=== PATIENT | female | born 1940 | race Caucasian/White ===

== ENCOUNTER → 2016-07-02 | Outpatient (CLI) | payer MEDICARE, BC ==
--- NOTE | 2016-07-02 14:46 | RADRPT ---
PROCEDURE: Right knee radiographs. CLINICAL INDICATION: Right knee pain. TECHNIQUE: Four views. Weight bearing. Frontal, lateral, oblique, and patellar view. COMPARISON: 09/15/2012. FINDINGS: There is no fracture or dislocation. The soft tissues are normal. There are degenerative changes with osteophytes arising from all 3 joint compartment margins. There is patellofemoral joint compartment narrowing. There is no lytic or blastic lesion. There is no radiopaque foreign body. IMPRESSION: 1. Moderate degenerative change, similar to 09/15/2012. 2. No acute abnormality. RPTAT: QQ .Joshua Edwards MD, MD Date Time Electronically viewed and signed by .Joshua Edwards MD, MD on 07/02/2016 14:46 .R/
== END | disposition home or self-care (01) ==
LOC: HKI 14:31
PROVIDERS: ATTEND Orthopaedic Surgery
DX: M17.11 Unilateral primary osteoarthritis, right knee (principal); M25.561 Pain in right knee; E66.9 Obesity, unspecified
CPT/HCPCS: 20610; 73564; G0463; J7327